=== PATIENT | male | born 1945 | race Caucasian/White ===

== ENCOUNTER 2023-10-20 15:18 | Emergency (ER) | payer MEDICARE, MEDICAID, SELFPAY ==
[2023-10-20 15:22] VITALS: BP 103/54; PULSE 110; RESP 24; TEMP 38.3; O2SAT 76
--- NOTE | 2023-10-20 15:29 | ED.SOB ---
HPI - SOB/Dyspnea General Chief Complaint: Shortness of Breath/Dyspnea Stated Complaint: COPD/SOB Time Seen by Provider: 10/20/23 15:20 Source: patient and family Mode of arrival: ambulatory Limitations: no limitations History of Present Illness HPI Narrative: Kevin is a 78-year-old male patient presenting to the clinic today with complaints of shortness breath and hypoxia. Initial SpO2 sats were 60-70% on room air. Patient's lips were blue. Only able to speak 1-2 words at a time of for having to take a breath. States he has had a productive cough with yellow phlegm for 4 days. History of COPD. Denies any cardiac history. Has fever in the clinic of 38.3 heart rate 110 with a blood pressure 103/54. O2 was placed 2 L via nasal cannula bringing SpO2 up to 92%. DuoNeb treatment was initiated. EMS was contacted for transport to the ER. Patient requesting to be transferred to [facility] ER. Related Data Home Medications Medication Instructions Recorded Confirmed albuterol sulfate 90 mcg/actuation inhalation 10/20/23 aerosol inhaler budesonide-formoterol HFA 160 inhalation 10/20/23 mcg-4.5 mcg/actuation aerosol inhaler (Symbicort) gabapentin 800 mg tablet mg 10/20/23 glipizide 10 mg tablet, extended mg PO 10/20/23 release 24 hr hydrocodone 5 mg-acetaminophen 325 tablet 10/20/23 mg tablet linagliptin 5 mg tablet (Tradjenta) mg 10/20/23 omeprazole 20 mg capsule,delayed mg 10/20/23 release rosuvastatin 20 mg tablet mg 10/20/23 valsartan 160 mg tablet mg 10/20/23 Allergies Allergy/AdvReac Type Severity Reaction Status Date / Time No Known Allergies Allergy Verified 10/20/23 15:20 Review of Systems Review of Systems: Pertinent positives per HPI. Patient denies any rash, headache, visual changes, dizziness, runny nose, sore throat, chest pain, palpitations, nausea, vomiting, diarrhea, constipation, abdominal pain, or any urinary issues. PMFSH Comments At the time of my signature, I reviewed and agree with the nursing past medical, surgical, social, and family history. There is no relevant family history pertinent to the patient complaint. Exam Narrative: General: Well-developed, thin, labored breathing, pale, ill appearing Head: Normocephalic, atraumatic Eyes: Pupils equally round and reactive to light bilaterally, EOM intact, sclera and conjunctive clear, no discharge, lids normal Ears: TMs intact and clear, ear canals clear, no drainage, grossly hearing normal. Nose: Nares patent, no discharge, no inflammation, no sinus tenderness. Mouth: Oropharynx without lesions or masses, good dentition, MMM. Lips are cyanotic Neck: Supple, trachea midline, no enlargement of anterior or posterior cervical nodes, no thyroid masses or goiter palpable. Cardio: Regular rate and rhythm, s1 and s2 normal, no murmur appreciated. Resp: Lung sounds [id number] minimal air flow, no rhonchi, rales, wheezing or rubs-unable to speak more than 1-2 words in between taking breaths. Course Course Emergency Course: Portions of this record may have been created with voice recognition software. Level of Care: Express Care Visit Vital Signs Vital signs: Vital Signs Temperature 38.3 C H 10/20/23 15:22 Pulse Rate 110 H 10/20/23 15:22 Respiratory Rate 24 H 10/20/23 15:22 Blood Pressure 103/54 L 10/20/23 15:22 Pulse Oximetry 76 L 10/20/23 15:22 Oxygen Delivery Room Air 10/20/23 15:22 Temperature 38.3 C H 10/20/23 15:22 Pulse Rate 110 H 10/20/23 15:22 Respiratory Rate 24 H 10/20/23 15:22 Blood Pressure 103/54 L 10/20/23 15:22 Pulse Oximetry 76 L 10/20/23 15:22 Oxygen Delivery Room Air 10/20/23 15:22 Vital signs reviewed Transfer Transfered to: [facility] Transportation: ALS Transfer rationale: SOB/hypoxia Accepting physician: Dr. Hoyos Transfer comments: Via ALS MDM - SOB/Dyspnea MDM Narrative Medical decision making narr
[2023-10-20] MEDS: IPRATROPIUM BR 0.02% INH SOLN 0.5 MG/2.5 ML VIAL INHALATION (15:31)
[2023-10-20] MEDS: ALBUTEROL SULFATE NEB 2.5 MG/3 ML INH INHALATION (15:31)
[2023-10-20 15:35] VITALS: O2SAT 90
== END 2023-10-20 15:35 | disposition short-term general hospital (02) ==
PROVIDERS: Emergency Provider Nurse Practitioner Family; PCP Family Medicine
DX: R06.02 Shortness of breath (principal); R09.02 Hypoxemia; J44.9 Chronic obstructive pulmonary disease, unspecified; I10 Essential (primary) hypertension; K21.9 Gastro-esophageal reflux disease without esophagitis; M19.90 Unspecified osteoarthritis, unspecified site; E03.9 Hypothyroidism, unspecified
CPT/HCPCS: 94640; 99215; G0463